=== PATIENT | male | born 1960 | race Caucasian/White ===

== ENCOUNTER 2018-08-16 08:58 | Inpatient (IN) ==
[2018-08-10 16:05] LABS: Appearance,Urine CLEAR; Bilirubin,Urine NEG (NEG); Color,Urine YELLOW; Glucose,Urine (UA) NEGATIVE (NEG); Leukocyte Esterase,Urine NEG /uL (NEG); Protein,Urine NEG (NEG); Specific Gravity,Urine 1.014 (1.000-1.035); Urine Blood NEG mg/dL (<0.03); Urobilinogen,Urine NEG (NEG)
[2018-08-10 18:28] LABS: Basophils # (Auto) 0 K/mcL (0.0-0.3); Basophils % (Auto) 0.4 % (0.0-2.0); Eosinophils # (Auto) 0.1 K/mcL (0.0-0.7); Eosinophils % (Auto) 1.3 % (0.0-7.0); Granulocytes % (Auto) 65.2 % (38.0-78.0); Lymphocytes # (Auto) 2.4 K/mcL (1.5-4.8); Lymphocytes % (Auto) 24.1 % (15.5-49.0); Mean Cell Volume 82.4 fL (80.0-100.0); Mean Corpuscular HGB Conc 33.4 g/dL (31.0-36.0); Mean Corpuscular Hemoglobin 27.5 pg (26.0-34.0); Monocytes # (Auto) 0.9 K/mcL (0.1-0.9); Platelet Count 349 K/mcL (140-440); RBC 5.57 M/mcL (4.50-5.90); Red Cell Distribution Width 13.6 % (11.5-14.5)
[2018-08-10 18:49] LABS: Blood Urea Nitrogen 15 mg/dl (6-20)
[~2018-08-16 08:58] MED LIST: 0.9 % SODIUM CHLORIDE 9 ML, KETOROLAC 30 MG, ROPIVACAINE HCL/PF 49.5 ML, EPINEPHrine 0.... IJ SCH; ACETAMINOPHEN 500 MG TABLET PO SCH; CELECOXIB 200 MG CAPSULE PO SCH; PREGABALIN 75 MG CAPSULE PO SCH; ceFAZolin 1 GM VIAL IV SCH
[2018-08-16] MEDS ORDERED: ONDANSETRON 4 MG/2 ML VIAL IV ONE (12:20)
[2018-08-16] MEDS ORDERED: PROPOFOL 200 MG/20 ML VIAL IV ONE (12:20)
[2018-08-16] MEDS ORDERED: LIDOCAINE HCL/PF 100 MG/5 ML SYRINGE IV ONE (12:20)
[2018-08-16] MEDS ORDERED: DEXAMETHASONE 10 MG/ML VIAL IV ONE (12:20)
[2018-08-16] MEDS ORDERED: MIDAZOLAM 5 MG/5 ML VIAL IV ONE (12:20)
[2018-08-16] MEDS ORDERED: TRANEXAMIC ACID 1,000 MG/10 ML VIAL IV ONE (12:20)
[2018-08-16] MEDS ORDERED: ROPIVACAINE HCL/PF 30 ML VIAL IJ ONE (12:20)
[2018-08-16] MEDS ORDERED: GENTAMICIN SULFATE 800 MG/20 ML VIAL IR ONE (12:44)
[2018-08-16] MEDS ORDERED: ONDANSETRON 4 MG/2 ML VIAL IV PRN ×2 (13:50→13:59)
[2018-08-16] MEDS ORDERED: fentaNYL 100 MCG/2 ML VIAL IV PRN (13:50)
[2018-08-16] MEDS ORDERED: METHOCARBAMOL 1,000 MG/10 ML VIAL IV PRN (13:50)
[2018-08-16] MEDS ORDERED: MEPERIDINE 25 MG/ML SYRINGE IV PRN (13:50)
[2018-08-16] MEDS ORDERED: IPRATROPIUM/ALBUTEROL 3 ML AMPUL.NEB NEB PRN (13:50)
[2018-08-16] MEDS ORDERED: BISACODYL 10 MG SUPP.RECT PR PRN (13:59)
[2018-08-16] MEDS ORDERED: BENZOCAINE/MENTHOL 1 LOZENGE PO PRN (13:59)
[2018-08-16] MEDS ORDERED: ACETAMINOPHEN 325 MG TABLET PO PRN (13:59)
[2018-08-16] MEDS ORDERED: POLYETHYLENE GLYCOL 3350 17 GM PACKET PO PRN (13:59)
[2018-08-16] MEDS ORDERED: FLEETS ADULT ENEMA PR PRN (13:59)
[2018-08-16] MEDS ORDERED: MAGNESIUM HYDROXIDE 30 ML ORAL.SUSP PO PRN (13:59)
[2018-08-16] MEDS ORDERED: TRANEXAMIC ACID 1,000 MG/10 ML VIAL IV SCH (13:59)
--- NOTE | 2018-08-16 13:59 | Brief Operative Note ---
Date of procedure: 08/16/18 Pre-op diagnosis: Left knee djd severe Post-op diagnosis: same Procedure: left robotic tka Grafts/Implants: Yes Anesthesia: GETA Complications: none Surgeon: Sumanth Magallanes [employer] Manager: Ganga Cabrera Estimated blood loss (cc): 50 Tourniquet Time (Minutes): 55 Specimens Removed/Pathology: none sent Condition: stable Disposition: PACU
[2018-08-16] MEDS ORDERED: LACTATED RINGERS 1,000 ML IV SCH (14:00)
--- NOTE | 2018-08-16 14:50 | Operative Note ---
DATE OF OPERATION: 08/16/2018 PREOPERATIVE DIAGNOSIS: Left knee degenerative arthritis. POSTOPERATIVE DIAGNOSIS: Left knee degenerative arthritis. PROCEDURE: Left total knee arthroplasty. SURGEON: Sumanth Magallanes MD DATA ADMINISTRATOR: Ganga Cabrera PA-C ANESTHESIA: General LMA anesthesia. COMPLICATIONS: None. TOTAL TOURNIQUET TIME: Approximately 55 minutes. ESTIMATED BLOOD LOSS: About 50 mL IMPLANTS: Dmitri components. These were cemented femoral and tibial baseplate with a 9 mm poly insert with a 35 mm oval patella. DESCRIPTION OF PROCEDURE: Patient was brought to the operating room and put to sleep with general LMA anesthesia. Once asleep, the patient had the left leg sterilely prepped and draped in the usual sterile fashion. A timeout was performed and we confirmed the operative site by initials, consent form and x-rays. Ioban was placed over the skin and the initials and a midline incision was made. A mid vastus approach through the capsule was made and pins were placed above and below the knee and intra-articular pins. We registered the center of hip rotation and 30 points on the femur and the tibia, registered the medial and lateral malleolus and the intra-articular pins. We then balanced the knee at 90 and 15 degrees. Large spurs had been removed. We then brought in the robot, registered the robot and cut the tibial cut first. We reregistered the femur and robot and the femoral cuts were made. These bony fragments were removed. The alignment was perfectly aligned with a preoperatively planned procedure. We then preserved the posterior cruciate ligament, removed posterior osteophytes and balanced the knee. It was a little tight medially. At this point, we did release the deeper heads of the medial collateral ligament. This seemed to balance nicely. It had almost 0 degrees extension. He started about 5 degrees flexion contracture and had about 3 degrees of flexion. We were able to get to full extension. We irrigated thoroughly and then fit the final implants. These were cemented into place after preparing the bone with pulse lavage and CarboJet to dry the bone. This gave excellent bone penetration into the bone. We irrigated thoroughly. We then put the knee in extension, resurfaced the patella. It started at 25 mm. It was cut to 16 mm and a 35 mm oval patella was placed which matched the anatomy of the patella the best. A small chamfer cut was made laterally with any overhanging bone. We irrigated thoroughly and watched the patella tracked perfectly. At this point, we then let the knee at 45 degrees until all cement was dried. We deflated the tourniquet at approximately 55 minutes. We then inspected the joint once more for any debris and closed the capsule with #1 Stratafix x2 sutures. We closed the skin with 2-0 Vicryl and adhesive closure. Sterile bandage was applied. RBH:stoney Job ID: [id number] Doc ID: [id number] Sumanth Magallanes MD
--- NOTE | 2018-08-16 15:18 | XRay Report ---
CLINICAL INFORMATION: Post-Op Total Knee COMPARISON: None. FINDINGS: Total knee prostheses is anatomically aligned. No osseous abnormality. Periarticular gas and soft tissue swelling seen as expected IMPRESSION: Negative Interpreted and Authenticated by: Juan Miguel Portillo 08/16/18
[2018-08-16] MEDS: 0.9 % SODIUM CHLORIDE 10 ML SYRINGE IV SCH ×2 (16:09→21:24)
[2018-08-16] MEDS: 0.45 % SODIUM CHLORIDE 1,000 ML IV SCH (17:35)
[2018-08-16] MEDS: FERROUS SULFATE 325 MG TABLET PO SCH (17:36)
[2018-08-16] MEDS: KETOROLAC 15 MG/ML VIAL IV SCH ×2 (17:36→23:19)
[2018-08-16] MEDS: ceFAZolin 1 GM VIAL IV SCH (19:12)
[2018-08-16] MEDS: HYDROcodone/APAP 10/325MG TABLET PO PRN (19:30)
[2018-08-16] MEDS ORDERED: SIMVASTATIN 10 MG TABLET PO SCH (21:00)
[2018-08-16] MEDS ORDERED: VITAMIN D3 1,000 UNIT TABLET PO SCH (21:00)
[2018-08-16] MEDS ORDERED: TEMAZEPAM 15 MG CAPSULE PO PRN (21:00)
[2018-08-16] MEDS ORDERED: SENNOSIDES 1 TABLET PO SCH (21:00)
[2018-08-16] MEDS ORDERED: LOSARTAN 25 MG TABLET PO SCH (21:00)
[2018-08-16] MEDS ORDERED: ASCORBIC ACID 500 MG TABLET PO SCH (21:00)
[2018-08-16] MEDS: ASPIRIN 325 MG ENTERIC COATED TABLET PO SCH (21:21)
[2018-08-16] MEDS: DOCUSATE SODIUM 100 MG CAPSULE PO SCH (21:22)
[2018-08-16] MEDS: HYDROmorphone 2 MG/ML VIAL IV PRN (23:18)
[2018-08-17] MEDS: HYDROcodone/APAP 10/325MG TABLET PO PRN ×2 (00:19→10:07)
[2018-08-17] MEDS: HYDROmorphone 2 MG/ML VIAL IV PRN (02:39)
[2018-08-17] MEDS: 0.45 % SODIUM CHLORIDE 1,000 ML IV SCH (02:40)
[2018-08-17] MEDS: ceFAZolin 1 GM VIAL IV SCH (03:20)
[2018-08-17] MEDS: KETOROLAC 15 MG/ML VIAL IV SCH (05:14)
[2018-08-17] MEDS: 0.9 % SODIUM CHLORIDE 10 ML SYRINGE IV SCH (05:14)
--- NOTE | 2018-08-17 07:04 | Orthopedic Progress Note ---
Subjective Patient information: Note initiated : 08/17/18 at 7:03 am Service Date, if different from initiated Date: [] Patient: Carlos Hicks 58 y/o M admitted on 08/16/18 for Left Robotic Total Knee Arthroplasty. Chief Complaint: [Pt is stable this morning on post operative day 1 without any significant concerns or complaints. Patients vital signs have remained stable. Patients dressing is dry and is grossly intact from a neurovascular and motor standpoint. Patients 10 point ROS is otherwise negative. ] Objective Vital signs: Vital Signs Temp Pulse Resp BP Pulse Ox 08/17/18 03:42 98.5 F 91 H 16 98/60 93 08/17/18 03:41 93 08/17/18 00:00 98.6 F 88 16 110/62 95 08/16/18 19:49 98.1 F 103 H 20 128/82 93 08/16/18 17:59 95 08/16/18 17:05 124/74 95 08/16/18 16:43 121/81 97 08/16/18 16:28 123/77 96 08/16/18 16:13 133/82 98 08/16/18 15:58 126/78 94 08/16/18 15:43 128/78 97 08/16/18 15:19 96.9 F L 63 14 144/79 98 08/16/18 15:05 96.9 F L 68 14 158/83 98 08/16/18 14:53 97.1 F 77 13 150/87 99 08/16/18 14:38 97 F 80 14 158/86 98 08/16/18 14:33 97.1 F 80 18 141/85 97 08/16/18 14:28 97 F 83 18 113/81 93 08/16/18 14:23 97 F 79 17 96/52 98 08/16/18 13:59 77 08/16/18 13:50 99 08/16/18 09:22 97.9 F 77 16 135/78 95 08/16/18 08:58 97.9 F 77 16 135/78 95 Intake and Output 08/16/18 08/17/18 08/17/18 21:59 05:59 13:59 Intake Total 2240 / 2240 2100 / 2100 Output Total 1700 / 1700 225 / 225 Balance 540 / 540 1875 / 1875 Intake: IV 1000 / 1000 Sodium Chloride 0.45% 1,000 ml 1000 / 1000 @ 100 mls/hr IV .Q10H SANDRA Rx#: [id number] Oral 840 / 840 1100 / 1100 IV - Manual Only 1400 / 1400 Output: Urine Catheter Amount 600 / 600 Void Amount 975 / 975 225 / 225 Estimated Blood Loss 125 / 125 Other: Urine Appearance Clear Clear Urine Color Bright Yellow Dark Yellow Urine Odor Normal Normal Weight 322 lb Intake & Output: Intake & Output 08/16/18 08/17/18 08/17/18 21:59 05:59 13:59 Intake Total 2240 / 2240 2100 / 2100 Output Total 1700 / 1700 225 / 225 Balance 540 / 540 1875 / 1875 Weight 322 lb Intake: IV 1000 / 1000 Sodium Chloride 0.45% 1,000 ml 1000 / 1000 @ 100 mls/hr IV .Q10H SANDRA Rx#: [id number] Oral 840 / 840 1100 / 1100 IV - Manual Only 1400 / 1400 Output: Urine Catheter Amount 600 / 600 Void Amount 975 / 975 225 / 225 Estimated Blood Loss 125 / 125 Other: Urine Appearance Clear Clear Urine Color Bright Yellow Dark Yellow Urine Odor Normal Normal Incision: Yes healing Incision clean and dry: Yes Dressing: Yes clean Weight bearing status: full Neurological exam IM: Yes motor sensory intact, Yes neurovascular intact Extremities exam IM: Yes Foot pink and warm, Yes neurovascular intact - Labs CBC & BMP: 08/17/18 04:05 08/10/18 13:45 Labs: Orthopedic Labs 08/10/18 13:45 PT 13.2 INR 1.0 APTT 35 08/17/18 08/10/18 04:05 13:45 Hgb 15.3 Hct 37.0 L 45.9 Assessment and Plan (1) Hx of total knee arthroplasty The patient has been educated regarding dressing care, Physical Therapy recommendations, home exercises, restrictions, and follow up appointments. The patient has had all necessary DME prescribed. The patient has remained relatively stable during their hospital course. Leave Dermabond patch intact until followup Status: Acute
--- NOTE | 2018-08-17 07:06 | Discharge Summary ---
Ortho Discharge - TKA - Patient Instructions Diet: Regular Diet Activity: activity as tolerated, weight bearing as tolerated Total Knee Protocol: For Total Knee: Start ROM [place] with stationary bike or rocking chair. Work on gaining full extension of knee. Posterior dislocation precautions provided. Hip abductor strengthening and gait training instructions provided. Apply Cryocuff as instructed. Dressing Care: May shower in 2 days - Problem Maintenance (1) Hx of total knee arthroplasty Status: Acute - Follow Up Plan Follow Up Appointments: Ganga Cabrera PA-C [Physician Agriscience Instructor] - Disposition: Home, Self-Care Prognosis: Good Rehab Potential: Good I certify that the patient requires SNF services: No Overall status at discharge: patient is progressing back to baseline - Orders For Discharge Prescriptions: Aspirin [Ecotrin] 325 mg PO BID #60 tab.ec Docusate Sodium [Colace] 100 mg PO BID #60 cap HYDROcodone/APAP 10/325MG [[place] 10-325Mg] 1 - 2 tab PO Q4HP PRN #75 tab PRN Reason: Pain Level 3-6
[2018-08-17] MEDS: DOCUSATE SODIUM 100 MG CAPSULE PO SCH (08:38)
[2018-08-17] MEDS: FERROUS SULFATE 325 MG TABLET PO SCH (08:38)
[2018-08-17] MEDS: ASPIRIN 325 MG ENTERIC COATED TABLET PO SCH (08:38)
[2018-08-17] MEDS ORDERED: SAW PALMETTO 160 MG PO SCH (09:00)
[2018-08-17] MEDS ORDERED: MODAFINIL 200 MG TABLET PO SCH (09:00)
== END 2018-08-17 11:45 | disposition home or self-care (01) | DRG 470 ==
LOC: MEDSUR 08:58
PROVIDERS: ADMIT Orthopaedic Surgery; ATTEND Orthopaedic Surgery
CPT/HCPCS: 62322; 97161; C1713; C1776; J0690; J1100; J1170; J1580; J1885; J2001; J2250; J2405; J2795; J3010; J7120

== ENCOUNTER 2019-04-11 12:17 | Inpatient (IN) ==
[2019-04-05 15:50] LABS: Basophils # (Auto) 0 K/mcL (0.0-0.3); Basophils % (Auto) 0.4 % (0.0-2.0); Eosinophils # (Auto) 0.2 K/mcL (0.0-0.7); Eosinophils % (Auto) 2.2 % (0.0-7.0); Granulocytes % (Auto) 64.5 % (38.0-78.0); Hematocrit 47.5 % (41.0-55.0); Hemoglobin 15.3 g/dL (13.5-16.5); Lymphocytes # (Auto) 2.6 K/mcL (1.5-4.8); Lymphocytes % (Auto) 25.5 % (15.5-49.0); Mean Cell Volume 83.4 fL (80.0-100.0); Mean Corpuscular HGB Conc 32.3 g/dL (31.0-36.0); Mean Platelet Volume 7.5 fL (7.4-10.4); Monocytes # (Auto) 0.8 K/mcL (0.1-0.9); Monocytes % (Auto) 7.4 % (1.0-12.0); Platelet Count 341 K/mcL (140-440); RBC 5.69 M/mcL (4.50-5.90); Red Cell Distribution Width 13.3 % (11.5-14.5); WBC 10.2 K/mcL (4.5-11.0)
[2019-04-05 15:56] LABS: INR 0.9 (0.9-1.1); Prothrombin Time 12.4 sec (11.9-14.5)
[2019-04-05 15:57] LABS: Blood Urea Nitrogen 17 mg/dl (6-20); Calcium 10.3 mg/dl (8.6-10.4); Carbon Dioxide 24 mmol/L (22-30); Chloride 105 mmol/L (96-108); Glomerular Filtration Rate 94; Glucose 100 mg/dL (70-105)
[2019-04-05 16:38] LABS: Appearance,Urine CLEAR; Bacteria,Urine 0 /hpf (0); Bilirubin,Urine NEG (NEG); Color,Urine YELLOW; Culture Indicated,Urine NO; Glucose,Urine (UA) NEGATIVE (NEG); Ketones,Urine NEG (NEG); Leukocyte Esterase,Urine NEG /uL (NEG); Mucus,Urine FEW /hpf (0); Nitrate,Urine NEG (NEG); Protein,Urine NEG (NEG); Specific Gravity,Urine 1.019 (1.000-1.035); Urine Blood 0.03 mg/dL (<0.03); Urine RBC 3 /hpf (0-1); Urine Squamous Epithelial Cell 0 /hpf (0-4); Urine WBC 1 /hpf (0-4); Urobilinogen,Urine NEG (NEG)
[~2019-04-11 12:17] MED LIST changes: +IPRATROPIUM/ALBUTEROL 3 ML AMPUL.NEB NEB PRN; +SCOPOLAMINE 1 PATCH PATCH TOPICAL PRN; -ceFAZolin 1 GM VIAL IV SCH; +ceFAZolin 3 GM in DEXTROSE 5% IN WATER 50 ML IV SCH
[2019-04-11] MEDS ORDERED: DEXAMETHASONE 10 MG/ML VIAL ONE (17:10)
[2019-04-11] MEDS ORDERED: PROPOFOL 200 MG/20 ML VIAL IV ONE (17:10)
[2019-04-11] MEDS ORDERED: LIDOCAINE HCL/PF 100 MG/5 ML SYRINGE IV ONE (17:10)
[2019-04-11] MEDS ORDERED: MIDAZOLAM 5 MG/5 ML VIAL ONE (17:10)
[2019-04-11] MEDS ORDERED: fentaNYL 100 MCG/2 ML VIAL IV ONE (17:10)
[2019-04-11] MEDS ORDERED: ONDANSETRON 4 MG/2 ML VIAL ONE (17:10)
[2019-04-11] MEDS ORDERED: GENTAMICIN SULFATE 800 MG/20 ML VIAL IR ONE (17:44)
[2019-04-11] MEDS ORDERED: HYDROmorphone 2 MG/ML VIAL IV PRN ×2 (19:10→19:45)
[2019-04-11] MEDS ORDERED: ACETAMINOPHEN 1,000 MG/100 ML BOTTLE IV ONE (19:10)
[2019-04-11] MEDS ORDERED: FLUMAZENIL 0.1 MG/ML ML IV PRN (19:10)
[2019-04-11] MEDS ORDERED: fentaNYL 100 MCG/2 ML VIAL IV PRN (19:10)
[2019-04-11] MEDS ORDERED: LACTATED RINGERS 250 ML IV PRN (19:10)
[2019-04-11] MEDS ORDERED: NALOXONE HCL 0.4 MG/ML VIAL IV PRN (19:10)
[2019-04-11] MEDS ORDERED: PROMETHAZINE 25 MG/ML VIAL IV PRN (19:10)
[2019-04-11] MEDS ORDERED: BENZOCAINE/MENTHOL 1 LOZENGE PO PRN ×2 (19:10→19:45)
[2019-04-11] MEDS ORDERED: IPRATROPIUM/ALBUTEROL 3 ML AMPUL.NEB NEB PRN (19:10)
[2019-04-11] MEDS ORDERED: MEPERIDINE 25 MG/ML SYRINGE IV PRN (19:10)
[2019-04-11] MEDS ORDERED: ONDANSETRON 4 MG/2 ML VIAL IV PRN ×2 (19:10→19:45)
[2019-04-11] MEDS ORDERED: diphenhydrAMINE 50 MG/ML VIAL IV PRN (19:10)
[2019-04-11] MEDS ORDERED: LACTATED RINGERS 1,000 ML IV SCH (19:15)
[2019-04-11] MEDS ORDERED: FLEETS ADULT ENEMA PR PRN (19:45)
[2019-04-11] MEDS ORDERED: BISACODYL 10 MG SUPP.RECT PR PRN (19:45)
[2019-04-11] MEDS ORDERED: TRANEXAMIC ACID 1,000 MG/10 ML VIAL IV ONE ×2 (19:45→20:25)
[2019-04-11] MEDS ORDERED: POLYETHYLENE GLYCOL 3350 17 GM PACKET PO PRN (19:45)
[2019-04-11] MEDS ORDERED: MAGNESIUM HYDROXIDE 30 ML ORAL.SUSP PO PRN (19:45)
[2019-04-11] MEDS ORDERED: TEMAZEPAM 15 MG CAPSULE PO PRN (19:45)
[2019-04-11] MEDS ORDERED: ACETAMINOPHEN 325 MG TABLET PO PRN (19:45)
--- NOTE | 2019-04-11 19:45 | Brief Operative Note ---
Date of procedure: 04/11/19 Pre-op diagnosis: Right failed total knee Post-op diagnosis: same Procedure: right tka revision of all components Grafts/Implants: Yes Anesthesia: MIGUEL Surgeon: Sumanth Magallanes Lathing Supervisor: Duane Desai Estimated blood loss (cc): 50 Tourniquet Time (Minutes): 100 Specimens Removed/Pathology: none sent Condition: stable Disposition: PACU
[2019-04-11] MEDS ORDERED: PROAIR INH PRN (19:47)
[2019-04-11] MEDS ORDERED: SIMVASTATIN 20 MG TABLET PO SCH (21:00)
[2019-04-11] MEDS ORDERED: SENNOSIDES 1 TABLET PO SCH (21:00)
[2019-04-11] MEDS: 0.45 % SODIUM CHLORIDE 1,000 ML IV SCH (21:51)
[2019-04-11] MEDS: ceFAZolin 1 GM VIAL IV SCH (21:51)
[2019-04-11] MEDS: ASPIRIN 325 MG ENTERIC COATED TABLET PO SCH (21:53)
[2019-04-11] MEDS: DOCUSATE SODIUM 100 MG CAPSULE PO SCH (21:53)
[2019-04-11] MEDS: oxyCODONE/APAP 5/325MG TABLET PO PRN (21:53)
[2019-04-11] MEDS: 0.9 % SODIUM CHLORIDE 10 ML SYRINGE IV SCH (23:15)
[2019-04-12] MEDS: KETOROLAC 15 MG/ML VIAL IV SCH ×2 (00:07→05:23)
[2019-04-12] MEDS: oxyCODONE/APAP 5/325MG TABLET PO PRN ×2 (01:46→06:01)
--- NOTE | 2019-04-12 04:33 | XRay Report ---
CLINICAL INFORMATION: Post-Op Total Knee COMPARISON: None. FINDINGS: Total knee prostheses is anatomically aligned. No osseous abnormality. Periarticular soft tissue swelling noted IMPRESSION: Negative Interpreted and Authenticated by: Juan Miguel Portillo 04/12/19
[2019-04-12] MEDS: 0.9 % SODIUM CHLORIDE 10 ML SYRINGE IV SCH (05:24)
[2019-04-12] MEDS: ceFAZolin 1 GM VIAL IV SCH (05:24)
--- NOTE | 2019-04-12 06:32 | Orthopedic Progress Note ---
Subjective Patient information: Note initiated : 04/12/19 at 6:30 am Service Date, if different from initiated Date: [] Patient: Carlos Hicks 59 y/o M admitted on 04/11/19 for Right Revision Total Knee Arthroplasty. Chief Complaint: Right knee pain Principal diagnosis: s/p Right Revision Total Knee Arthroplasty Interval history: Pt is a 59 yo male POD #1 for Right Revision Total Knee Arthroplasty with Dr. Magallanes. Overall doing well this AM. His pain is managed. Denies N/V, CP, SOB, ca lf tenderness. Admits to slight tingling in the right great toe. Has been ambulating with PT using the walker. Has been able to void this AM. Pertinent ROS: Negative except per HPI. Objective Vital signs: Vital Signs Temp Pulse Resp BP BP Pulse Ox 04/12/19 03:14 98.2 F 108 H 16 116/73 95 04/12/19 00:00 95 04/11/19 23:58 97.9 F 96 H 14 116/71 95 04/11/19 22:58 100 H 129/78 94 04/11/19 22:30 98 H 129/71 96 04/11/19 21:58 88 137/71 97 04/11/19 21:44 82 135/56 96 04/11/19 21:28 83 127/82 95 04/11/19 21:14 77 128/72 96 04/11/19 21:00 95 04/11/19 20:59 97.4 F 74 16 124/76 94 04/11/19 20:58 72 124/76 94 04/11/19 20:42 74 16 134/77 96 04/11/19 20:32 74 14 131/58 95 04/11/19 20:22 77 14 135/73 95 04/11/19 20:17 81 14 120/63 94 04/11/19 20:12 85 19 130/60 96 04/11/19 20:07 97.4 F 80 12 131/68 100 04/11/19 19:45 95 04/11/19 13:00 98.7 F 84 18 146/84 96 Intake and Output 04/11/19 04/12/19 04/12/19 21:59 05:59 13:59 Intake Total 2780 640 800 Output Total 800 1025 250 Balance 1979 -385 550 Intake: Oral 360 640 800 IV - Manual Only 2420 Output: Urine Catheter Amount 700 1025 Void Amount 250 Estimated Blood Loss 100 Other: Meal Dinner Percent of Meal Consumed 100% Feeding Ability Independent Nourishment/Supplement name tuna salad, chicken salad, peaches, cheese stick, OJ, Coke, Gram crackers Urine Appearance Clear Clear Clear Straight Clear Urine Color Bright Yellow Bright Yellow Bright Yellow Straight Bright Yellow Urine Odor Normal Normal Normal # Bowel Movements 0 Weight 328 lb 8 oz Intake & Output: Intake & Output 04/11/19 04/12/19 04/12/19 21:59 05:59 13:59 Intake Total 2780 640 800 Output Total 800 1025 250 Balance 1980 -385 550 Weight 328 lb 8 oz Intake: Oral 360 640 800 IV - Manual Only 2420 Output: Urine Catheter Amount 700 1025 Void Amount 250 Estimated Blood Loss 100 Other: Meal Dinner Percent of Meal Consumed 100% Feeding Ability Independent Nourishment/Supplement name tuna salad, chicken salad, peaches, cheese stick, OJ, Coke, Gram crackers Urine Appearance Clear Clear Clear Straight Clear Urine Color Bright Yellow Bright Yellow Bright Yellow Straight Bright Yellow Urine Odor Normal Normal Normal # Bowel Movements 0 Incision: Yes clean and dry Dressing: Yes clean, Yes dry, Yes intact Weight bearing status: as tolerated Neurological exam IM: Yes alert, Yes oriented X3 Extremities exam IM: No calf tenderness, Yes normal capillary refill, Yes normal inspection, No Sofia's sign, Yes neurovascular intact - Labs CBC & BMP: 04/05/19 13:40 04/05/19 13:40 Labs: Orthopedic Labs 04/05/19 13:40 PT 12.4 INR 0.9 APTT 31 04/12/19 04/05/19 04:30 13:40 Hgb 15.3 Hct Pending 47.5 Assessment and Plan - Narrative A/P Narrative: Pt is 59 yo male POD #1 following Right revision TKA. -Plan for DC home today. -WBAT -ASA 81 mg for 30 days. -Pain med rx at dc. -PT as prescribed. -F/u with orthopaedics in 2 weeks for wound check.
--- NOTE | 2019-04-12 06:38 | Discharge Summary ---
Providers - Providers Patient information: Note initiated : 04/12/19 at 6:36 am Service Date, if different from initiated Date: [] Patient: Carlos Hicks 59 y/o M admitted on 04/11/19 for Right Revision Total Knee Arthroplasty . Chief Complaint: Right knee pain. Date of admission: 04/11/19 Discharge date: 04/12/19 Hospitalization Hospital course: Pt is 59 yo male POD #1 following Right tka revision with Dr. Magallanes. Overall hospital course has been unremarkable. Vitals remain stable. Pt had difficulty urinating last evening however has been able to void this AM. Discharge diagnosis: s/p right TKA revision Exam - Exam Incision healing: Yes Incision draining: No Incision red: No Incision swollen: No Incision inflamed: No Clean and dry: Yes Weight bearing status: as tolerated Ortho Discharge - TKA - Patient Instructions Diet: Regular Diet Activity: activity as tolerated Total Knee Protocol: For Total Knee: Start ROM [place] with stationary bike or rocking chair. Work on gaining full extension of knee. Apply Cryocuff as instructed. Dressing Care: Other (may shower with Dermabond patch in place.) - Follow Up Plan Follow Up Appointments: Ganga Cabrera PA-C [Physician Lathing Supervisor] - 04/26/19 2:40 pm Disposition: Home, Self-Care Prognosis: Good Rehab Potential: Good I certify that the patient requires SNF services: No Overall status at discharge: patient is progressing back to baseline Pending Studies Resuscitation Status Full Code Diet Regular Diet Start ThuApr 11 Lunch Aspirin (Ecotrin) 325 mg PO BID [facility] Last Admin: 04/11/19 21:53 Dose: 325 mg Documented by: CALEB Docusate Sodium (Colace) 100 mg PO BID [facility] Last Admin: 04/11/19 21:53 Dose: 100 mg Documented by: CALEB Sodium Chloride (Sodium Chloride 0.45%) 1,000 mls @ 100 mls/hr IV .Q10H [facility] Last Admin: 04/11/19 21:51 Dose: 100 mls/hr Documented by: CALEB Ketorolac Tromethamine (Toradol) 15 mg IV Q6 [facility] Stop: 04/13/19 18:01 Last Admin: 04/12/19 05:23 Dose: 15 mg Documented by: Admin: 04/12/19 00:07 Dose: 15 mg Documented by: CALEB Oxycodone/Acetaminophen (Percocet 5-325 Mg) 0 tab PO Q4HP PRN PRN Reason: PAIN LEVEL 3-6 Last Admin: 04/12/19 06:01 Dose: 2 tab Documented by: Admin: 04/12/19 01:46 Dose: 2 tab Documented by: Admin: 04/11/19 21:53 Dose: 2 tab Documented by: CALEB Senna (Senokot) 2 tab PO HS [facility] Last Admin: 04/11/19 21:53 Dose: 2 tab Documented by: CALEB Simvastatin (Zocor) 20 mg PO HS [facility] Last Admin: 04/11/19 21:53 Dose: 20 mg Documented by: CALEB Sodium Chloride (Saline Flush) 10 ml IV Q8 [facility] Last Admin: 04/12/19 05:24 Dose: Not Given Documented by: Admin: 04/11/19 23:15 Dose: Not Given Documented by: CALEB Temazepam (Restoril) 15 mg PO HSP PRN PRN Reason: Insomnia Last Admin: 04/11/19 21:53 Dose: 15 mg Documented by: CALEB Shift Summary 04/12/19 03:35 Shift Summary by Philomena Suárez a/o x4, up with fww/sba, ambulated to and from nurses station with no d ifficulty, dressing of cathryn wrap to rt leg c/d/i, pain has been below a 4/10 to 0/10 this shift, medicated with percocet 2 tabs x2, given restoril for sleep, he maybe slept one hour, has declined use of cryo cuff and cpm, has been moving his need and flexing his ankle in bed, stated he a just a tiny bit of numbness to the rt first and 2 nd toe, has his own c -pap at bedside, on ra, vss, will receive his 2 nd dose of ancef this am, has a spine stimulator which he controls with a remote control for chronic back pain, Initialized on 04/12/19 03:35 - END OF NOTE
--- NOTE | 2019-04-12 07:16 | Operative Note ---
DATE OF OPERATION: 04/11/2019 PREOPERATIVE DIAGNOSIS: Right knee degenerative arthritis with a failed total knee arthroplasty with continued pain. POSTOPERATIVE DIAGNOSIS: Right knee degenerative arthritis with a failed total knee arthroplasty with continued pain. PROCEDURE: Complete revision of the right total knee arthroplasty. SURGEON: Sumanth Magallanes MD TREE GIRDLER: Duane Desai PA-C. This provider's expertise and technical skill were required throughout the case. The PA assisted with preoperative coordination, intraoperative retraction, wound closure, dressing and splint application, as well as postoperative documentation and care coordination. ESTIMATED BLOOD LOSS: About 50 mL TOURNIQUET TIME: 100 minutes. COMPLICATIONS: None. IMPLANTS: [place] revision femur and tibia with size 6 femur and size 5 tibial baseplate with a 13 mm polyethylene. DESCRIPTION OF PROCEDURE: The patient was brought to the operating room and put to sleep with general LMA. Once asleep, the patient had the right knee sterilely prepped and draped in the usual sterile fashion. Once done, we then confirmed the right knee as the operative site, made an incision through his prior scar exposing the joint with a mid vastus approach. The patella was subluxed laterally and this revealed the total knee with a post. We then removed the femoral component and removed the polyethylene. The femur came off with very minimal bone loss and the tibial baseplate was removed with minimal bone loss as well, using osteotomes to help free this up from the bone. This was tapped off and removed all the components. We thoroughly irrigated. We then placed an intramedullary guide rom in the tibia, reaming up to the size of 16 to a depth of 150 mm. Using a 2 mm offset to give better lateral coverage and better tracking for the patella, we positioned plates in external rotation and lateralizing the plate. This was tapped into place. On the femoral side we sized the femur to a size 6, made posterior cuts to remove any spurs. There were large posterior spurs that had been left that were removed using curved osteotomes. Once these were removed, we irrigated thoroughly and then trialed the components with a size 17 stem with 2 mm of lateralization, wheeled into the stem to help with the tracking of the patella. We then trialed a size 9, size 11 and then a 13 seemed to be the most appropriate for tightness. It tracked very well. The patella tracked perfectly. We irrigated thoroughly and then received the lab results from the high powered field. The fresh frozen section showed minimal white cells but with some chronic inflammation. We irrigated thoroughly and then cemented into place the size 5 tibial baseplate with a 16 mm stem, 150 mm long with lateralization 2 mm of the 4 o'clock position. Once done, we then prepared the femur. This was size 6 femur with a size 17 stem with lateralization of 2 mm, which was dialed in at the 9 o'clock position. The components were cemented, but the stems were not. These were ingrowth stems. We irrigated thoroughly and then inserted the polyethylene with a locking pin to size 13. We irrigated thoroughly and watched the patella track. It tracked perfectly. We irrigated thoroughly and then used Stratafix to close the wound. Some Ethibond had been used prior that was removed, the knots, and we then placed #1 Stratafix x3 sutures to close the wound. We closed the skin with 2-0 Vicryl and adhesive closure. The patient tolerated this well. There were no complications. LUIS:stoney Job ID: [id number] Doc ID: [id number] Sumanth Magallanes MD
[2019-04-12] MEDS ORDERED: FERROUS SULFATE 325 MG TABLET PO SCH (08:00)
[2019-04-12] MEDS ORDERED: LOSARTAN 25 MG TABLET PO SCH (09:00)
[2019-04-12] MEDS ORDERED: MODAFINIL 200 MG TABLET PO SCH (09:00)
[2019-04-12] MEDS ORDERED: COENZYME Q10 10 MG PO SCH (09:00)
[2019-04-12] MEDS ORDERED: PRAVASTATIN SODIUM 40 MG PO SCH (09:00)
[2019-04-12] MEDS: 0.45 % SODIUM CHLORIDE 1,000 ML IV SCH (09:06)
[2019-04-12] MEDS: DOCUSATE SODIUM 100 MG CAPSULE PO SCH (09:27)
[2019-04-12] MEDS: ASPIRIN 325 MG ENTERIC COATED TABLET PO SCH (09:28)
--- NOTE | 2019-04-13 13:11 | Surgical Pathology Report ---
HISTOLOGY SPECIMEN MICROSCOPIC DIAGNOSIS SYNOVIUM, RIGHT KNEE SUPERIOR POUCH, BIOPSY: -- SYNOVIUM WITH MILD CHRONIC INFLAMMATION AND CAUTERY ARTIFACT. -- NO SIGNIFICANT ACUTE INFLAMMATION IDENTIFIED, LESS THAN ONE NEUTROPHIL/hpf. (EBD:nicol) INTRAOPERATIVE CONSULTATION FROZEN SECTION DIAGNOSIS ([facility] [place], [place]) FSA - SYNOVIUM, RIGHT KNEE SUPERIOR POUCH, BIOPSY: -- 0-1 NEUTROPHILS/hpf. (RLF:sln) PROCEDURAL IMPRESSION Broken internal right knee prosthesis. GROSS DESCRIPTION Received fresh for intraoperative consultation labeled right knee superior pouch, is a segment of red-sauceda to white-sauceda rubbery tissue that measures 2.8 x 2.3 x 0.5 cm. Frozen section is performed. Excel Analyst sections submitted in one cassette. (RLF:sln) Electronically Signed by: Tiffanie Escudero M.D.
== END 2019-04-12 13:25 | disposition home or self-care (01) | DRG 467 ==
LOC: MEDSUR 12:17
PROVIDERS: ADMIT Orthopaedic Surgery; ATTEND Orthopaedic Surgery

== ENCOUNTER 2021-03-20 06:24 | Observation (INO) ==
--- NOTE | 2021-03-18 12:30 | EKG ---
[facility] Test Date: 2021-03-18 Pat Name: Carlos Hicks Department: [facility] Room: Gender: Male Quality Lead: YRN : 1960 Requested By: Rosemarie Caballero Order Number: [id number] Reading MD: Yoel Carreon M.D. Measurements Intervals [place] Rate: 78 P: 60 CO: 172 QRS: 2 QRSD: 96 T: 41 QT: 376 QTc: 429 Interpretive Statements SINUS RHYTHM PROBABLE INFERIOR INFARCT, AGE INDETERMINATE NO PRIOR TRACING FOR COMPARISON ABNORMAL ECG Electronically Signed On 03-18-2021 12:30:34 PDT by Yoel Carreon M.D. /[id number]/[email or web address]/[id number]
[2021-03-18 13:15] LABS: Basophils # (Auto) 0.04 K/mcL (0.00-0.20); Basophils % (Auto) 0.8 % (0.0-2.0); Eosinophils # (Auto) 0.32 K/mcL (0.00-0.70); Eosinophils % (Auto) 6.1 % (0.0-7.0); Hematocrit 45.2 % (41.0-55.0); Hemoglobin 14.4 g/dL (13.5-16.5); Lymphocytes % (Auto) 20.9 % (15.0-49.0); Mean Cell Volume 84.5 fL (80.0-100.0); Mean Corpuscular HGB Conc 31.9 g/dL (31.0-36.0); Mean Platelet Volume 9.3 fL (7.4-10.4); Monocytes # (Auto) 0.57 K/mcL (0.10-0.90); Monocytes % (Auto) 10.8 % (1.0-12.0); Neutrophils % (Auto) 61.4 % (38.0-78.0); Platelet Count 266 K/mcL (140-440); RBC 5.35 M/mcL (4.50-5.90); Red Cell Distribution Width 12.8 % (11.5-14.5); WBC 5.3 K/mcL (4.5-11.0)
[2021-03-18 14:49] LABS: Partial Thromboplastin Time 32.1 sec (20.0-37.0); Prothrombin Time 13.1 sec (11.9-14.5)
[2021-03-18 14:59] LABS: ALT/SGPT 26 U/L (<40); AST/SGOT 23 U/L (<40); Albumin 4.2 gm/dL (3.2-5.2); Albumin/Globulin Ratio 1.7 (1.0-2.3); Alkaline Phosphatase 101 U/L (39-117); Bilirubin,Total 0.3 mg/dL (0.1-1.0); Blood Urea Nitrogen 17 mg/dL (6-20); Carbon Dioxide 24 mmol/L (22-30); Chloride 101 mmol/L (96-108); Globulin 2.5 gm/dL (2.2-3.7); Glomerular Filtration Rate 98; Glucose 83 mg/dL (70-105)
[~2021-03-20 06:24] MED LIST changes: -0.9 % SODIUM CHLORIDE 9 ML, KETOROLAC 30 MG, ROPIVACAINE HCL/PF 49.5 ML, EPINEPHrine 0.... IJ SCH; -ACETAMINOPHEN 500 MG TABLET PO SCH; -CELECOXIB 200 MG CAPSULE PO SCH; -IPRATROPIUM/ALBUTEROL 3 ML AMPUL.NEB NEB PRN; -PREGABALIN 75 MG CAPSULE PO SCH; -SCOPOLAMINE 1 PATCH PATCH TOPICAL PRN; +ceFAZolin 2 GM in DEXTROSE 5% IN WATER 50 ML IV SCH; -ceFAZolin 3 GM in DEXTROSE 5% IN WATER 50 ML IV SCH
[2021-03-20] MEDS ORDERED: BACITRACIN 50,000 UNIT VIAL IR ONE (09:06)
[2021-03-20] MEDS ORDERED: PROPOFOL 200 MG/20 ML VIAL IV ONE (09:16)
[2021-03-20] MEDS ORDERED: MIDAZOLAM 2 MG/2 ML VIAL ONE (09:16)
[2021-03-20] MEDS ORDERED: ONDANSETRON 4 MG/2 ML VIAL ONE (09:16)
[2021-03-20] MEDS ORDERED: fentaNYL 100 MCG/2 ML VIAL IV ONE (09:16)
[2021-03-20] MEDS ORDERED: KETAMINE 50 MG/ML ML ONE (09:16)
[2021-03-20] MEDS ORDERED: GLYCOPYRROLATE 0.2 MG/ML VIAL IV ONE (09:16)
[2021-03-20] MEDS ORDERED: DEXAMETHASONE 10 MG/ML VIAL ONE (09:16)
[2021-03-20] MEDS ORDERED: LIDOCAINE HCL/PF 100 MG/5 ML SYRINGE IV ONE (09:16)
[2021-03-20] MEDS ORDERED: diphenhydrAMINE 50 MG/ML VIAL IV PRN (11:37)
[2021-03-20] MEDS ORDERED: PROMETHAZINE 25 MG/ML VIAL IM PRN (11:37)
[2021-03-20] MEDS ORDERED: BENZOCAINE/MENTHOL 1 LOZENGE PO PRN (11:37)
[2021-03-20] MEDS ORDERED: MEPERIDINE 25 MG/ML VIAL IV PRN (11:37)
[2021-03-20] MEDS ORDERED: ONDANSETRON 4 MG/2 ML VIAL IV PRN ×2 (11:37→12:06)
[2021-03-20] MEDS ORDERED: fentaNYL 100 MCG/2 ML VIAL IV PRN (11:37)
[2021-03-20] MEDS ORDERED: MEPERIDINE 50 MG/ML VIAL IM PRN (11:37)
[2021-03-20] MEDS ORDERED: IPRATROPIUM/ALBUTEROL 3 ML AMPUL.NEB NEB PRN (11:37)
[2021-03-20] MEDS ORDERED: KETOROLAC 30 MG/ML VIAL IV PRN (11:37)
[2021-03-20] MEDS ORDERED: ACETAMINOPHEN 1,000 MG/100 ML BAG IV ONE (11:37)
--- NOTE | 2021-03-20 11:41 | Operative Note ---
Brief Operative Note Date of procedure: 03/20/21 Pre-op diagnosis: Left inguinal hernia. Post-op diagnosis: other (Left) Procedure: Left radical orchiectomy and excision of left inguinal mass. Grafts/Implants: No Anesthesia: GETA Findings: Large left inguinal mass with both solid and cystic components. Intraoperative ultrasound revealed there to be cystic and solid components as well as blood flow. Cord and testicle but the entire area was extremely indurated. Complications: none Surgeon: Mario Becker Refrigeration Insulator: Rosemarie Caballero Specimens Removed/Pathology: other (Left testicle and spermatic cord, left inguinal mass.) Condition: stable Disposition: other (Per Dr. Caballero's report.) Operative Note Operative Note: The patient is a 61-year-old male who presented with complaints consistent with a left inguinal hernia. Dr. Caballero brought the patient to the operating room for a left inguinal hernia repair. Upon creating his incision and opening there was a large left inguinal mass that appeared to have solid and cystic components adjacent to the spermatic cord. Left testicle was palpable and no testicular mass was found. Intraoperative urology consultation was obtained. On arrival I palpated the mass that appeared to be fungating and have cystic and solid components. I called an intraoperative ultrasound which was performed. This confirmed both cystic and solid components with blood flow within the mass. The testicle appeared to be solid and no mass was clearly identified upon ultrasound. It should be noted that the patient has a history of prostate cancer status post radiation. There are multiple enlarged lymph nodes that appear to be palpable. We discussed excision of the mass and performing a left radical orchiectomy. Although the patient was not specifically consented for that the consent did include anything that we encountered that needed to be done during surgery. We both discussed and made the decision that the best course of action would be to excise the mass and performed a left radical orchiectomy. The left carotid cord was identified and cremasteric fibers were dissected free. We took this as proximal as possible to the internal ring. The cord was then clamped. We then dissected the cord down distally to the testicle and carefully dissected the gubernaculum and dissected the testicle from the scrotal skin taking care not to injure the scrotal skin. Once this was free we placed the superiorly and began resecting the mass. The mass was dissected using both blunt and sharp dissection and electrocautery. Any bleeders were tied using both 2-0 and 0 Vicryl sutures. Once the mass was out and passed off the table the cord was clamped with two clamps proximally and one clip distally. I then divided the cord between the distal and proximal clamps. The cord was then tied using two separate 0 Vicryl stick ties followed by an 0 Vicryl tie. I then placed a marking stitch using a #1 PDS suture left long for further identification should the patient need further treatment and/or surgery. The cord was then placed into the abdomen through the internal ring. There was no significant bleeding identified at this time. I then turned the case back over to Dr. Caballero for completion of his portion of the procedure. Please see Dr. Caballero's report for blood loss and postoperative condition.
[2021-03-20] MEDS ORDERED: LACTATED RINGERS 1,000 ML IV SCH (11:45)
--- NOTE | 2021-03-20 11:51 | Ultrasound Report ---
CLINICAL INFORMATION: Left inguinal mass discovered during left inguinal hernia repair COMPARISON: None. FINDINGS: Both testes are normal and symmetric in size position and echotexture each approximately 6 x 3 cm. There is no intratesticular masses. Arterial blood flow is normal in both testicles color Doppler. In the left inguinal region, a 6 x 6 cm solid isoechoic well-circumscribed mass which demonstrates arterial blood flow on color Doppler. IMPRESSION: 6 cm mass in the left inguinal region. This could represent a pathologic lymph node from metastases or lymphoma or even a primary tumor such as a sarcoma. The exam was performed intraoperatively-it is presumed the mass was resected will be sent for pathologic diagnosis. Both testes are normal Interpreted and Authenticated by: Juan Miguel Portillo 03/20/21
--- NOTE | 2021-03-20 12:02 | XRay Report ---
CLINICAL INFORMATION: surgical count COMPARISON: None. FINDINGS: No surgical sponge is identified. No osseous abnormality. Disc prostheses at L5-S1. Scrotal swelling noted IMPRESSION: No surgical sponge are identified. Moderate scrotal swelling.. Interpreted and Authenticated by: Juan Miguel Portillo 03/20/21
--- NOTE | 2021-03-20 12:06 | Brief Operative Note ---
Brief Operative Note Date of procedure: 03/20/21 Pre-op diagnosis: LEFT INGUINAL HERNIA Post-op diagnosis: other (LEFT INGUINAL MASS WITH ADENOPATHY) Procedure: LEFT INGUINAL EXPLORATION;INTRAOPERATIVE ULTRASOUND;EXCISION OF LEFT INGUINAL MASS AND LEFT RADICAL ORCHIECTOMY Grafts/Implants: No Anesthesia: GLMA Findings: LARGE INDURATED HARD MASS OF GROIN WITH MULTIPLE LARGE LYMPH NODES AND INDURATION OF CORD WITHOUT DIRECT INVOLVEMENT Complications: none Surgeon: Rosemarie Caballero Estimated blood loss (cc): 30 Specimens Removed/Pathology: other (LEFT TESTICLE AND SPERMATIC CORD;HARD LOBULATED MASS OF LEFT INGUINAL AREA) Condition: stable Disposition: PACU
[2021-03-20] MEDS ORDERED: ALBUTEROL SULFATE 200 PUFF INHALER INH PRN (12:16)
[2021-03-20 12:54] LABS: Prostate Specific Antigen 3.04 ng/mL (<6.50)
[2021-03-20] MEDS ORDERED: MELATONIN 3 MG TABLET PO PRN (13:20)
[2021-03-20] MEDS: HYDROmorphone 1 MG/ML SYRINGE IV PRN ×2 (16:30→20:27)
[2021-03-20] MEDS: LEVOFLOXACIN 500 MG/100 ML BAG IV SCH (16:30)
[2021-03-20] MEDS: 0.9 % SODIUM CHLORIDE 1,000 ML IV SCH (16:30)
[2021-03-20] MEDS: 0.9 % SODIUM CHLORIDE 10 ML SYRINGE IV SCH ×2 (16:31→20:29)
[2021-03-20] MEDS: SENNOSIDES 1 TABLET PO SCH (20:28)
[2021-03-20] MEDS: DOCUSATE SODIUM 100 MG CAPSULE PO SCH (20:28)
[2021-03-21] MEDS: HYDROcodone/APAP 10/325MG TABLET PO PRN ×5 (01:58→17:49)
[2021-03-21] MEDS: 0.9 % SODIUM CHLORIDE 1,000 ML IV SCH ×2 (02:18→12:58)
[2021-03-21] MEDS: HYDROmorphone 1 MG/ML SYRINGE IV PRN ×2 (03:21→21:26)
[2021-03-21] MEDS: 0.9 % SODIUM CHLORIDE 10 ML SYRINGE IV SCH ×3 (05:37→21:27)
[2021-03-21 07:05] LABS: Basophils # (Auto) 0.01 K/mcL (0.00-0.20); Basophils % (Auto) 0.1 % (0.0-2.0); Eosinophils # (Auto) 0.02 K/mcL (0.00-0.70); Eosinophils % (Auto) 0.3 % (0.0-7.0); Hematocrit 33.2 % (41.0-55.0); Hemoglobin 10.6 g/dL (13.5-16.5); Lymphocytes # (Auto) 1.11 K/mcL (1.50-4.80); Lymphocytes % (Auto) 15.1 % (15.0-49.0); Mean Corpuscular HGB Conc 31.9 g/dL (31.0-36.0); Mean Platelet Volume 9.2 fL (7.4-10.4); Monocytes # (Auto) 1.41 K/mcL (0.10-0.90); Monocytes % (Auto) 19.2 % (1.0-12.0); Neutrophils % (Auto) 65.3 % (38.0-78.0); Platelet Count 249 K/mcL (140-440); RBC 3.86 M/mcL (4.50-5.90); Red Cell Distribution Width 13.1 % (11.5-14.5); WBC 7.4 K/mcL (4.5-11.0)
[2021-03-21] MEDS: Fluticasone Furoate-Vilanterol [Breo Ellipta] Inhaler INH SCH (08:56)
[2021-03-21] MEDS: DOCUSATE SODIUM 100 MG CAPSULE PO SCH ×2 (08:56→21:29)
[2021-03-21] MEDS: LEVOFLOXACIN 500 MG/100 ML BAG IV SCH (08:56)
[2021-03-21] MEDS: DULoxetine 30 MG CAPSULE PO SCH (08:56)
--- NOTE | 2021-03-21 13:11 | General Surgery Progress Note ---
SUBJECTIVE Subjective Patient information: Note initiated : 03/21/21 at 1:03 pm Service Date, if different from initiated Date: [] Patient: Carlos Hicks 61 y/o M admitted on 03/20/21 for Left Inguinal Hernia Repair. Chief Complaint: [] Principal diagnosis: Left inguinal and scrotal mass Interval history: Patient is status post radical left orchiectomy with excision of a large nodular mass of the upper scrotum and inguinal area. Intraoperative ultrasound revealed it to be primarily solid with vascular supply. Patient has had the anticipated swelling which is not too severe. He is advised that he will have gradual reduction in the size of the scrotal tissue over time initial tumor markers. I again discussed with him the operative findings and the reason why orchiectomy and wide excision of the mass was done. The initial tumor markers are negative. The patient is having some difficulty voiding though he has been able to void up to 400 cc at a time. He had some problems voiding prior to the surgery due to BPH and history of prostate cancer status post radiation. Constitutional Vitals: Vital Signs Temp Pulse Resp BP Pulse Ox 97.6 F 90 16 108/62 94 03/21/21 12:00 03/21/21 12:00 03/21/21 12:00 03/21/21 12:00 03/21/21 12:00 Period Temp Pulse Resp BP Sys/Dover Pulse Ox Last 24 Hr 97.6 F-99 F 56-104 16-16 102-150/62-95 93-98 Intake and Output 03/20/21 03/21/21 03/21/21 21:59 05:59 13:59 Intake Total 200 1200 500 Output Total 300 700 400 Balance -100 500 100 Weight 259 lb Intake & Output: Intake & Output 03/20/21 03/21/21 03/21/21 21:59 05:59 13:59 Intake Total 200 1200 500 Output Total 300 700 400 Balance -100 500 100 Weight 259 lb Intake: IV 200 100 Sodium Chloride 0.9% 1,000 ml @ 100 75 mls/hr IV .[id number] [facility] Rx#: [id number] Oral 1200 400 Output: Urine Catheter Amount 700 Void Amount 300 400 Other: Meal Dinner Breakfast Percent of Meal Consumed 100% 100% Feeding Ability Independent Independent Urine Appearance Clear Clear Clear Urine Color Pale Pale Bright Yellow Urine Odor Normal # Voids 1 1 Respiratory Respiratory exam: Present normal respiratory exam and CTAB Cardiovascular Cardiovascular exam: Present normal rate and rhythm, RRR, +S1 and +S2 GI/Abdominal GI/Abdominal exam: Present normal bowel sounds and soft; Absent distended Additional comments: Moderately severe swelling of the left hemiscrotum with some extension to the right side. Moderate ecchymosis but tissue remains soft. Extremities Exam Extremities exam: Present full ROM and normal inspection Neurological Exam Neurological exam: Present alert, normal gait and oriented X3 Psychiatric Psychiatric exam: Present anxious A/P Assessment and plan (1) Mass of left inguinal region: Status: Acute (2) Urinary retention due to benign prostatic hyperplasia: Status: Acute (3) Chronic obstructive lung disease: Status: Acute Qualifiers: COPD type: emphysema Emphysema type: panlobular Qualified Code(s): J43.1 - Panlobular emphysema Narrative A/P Narrative: Patient will be allowed to try to avoid once more before straight cath. If he is unable to void will do straight cath and allow him more time. He is advised that his discharge may be delayed because of the severity of his urinary retention. He may have to have a temperature catheter until the swelling resolves Time Spent With Patient Time: Total time spent is greater than 50% in coordination of care (as documented) at patient's floor/unit and/or counseling patient:
--- NOTE | 2021-03-21 15:16 | Operative Note ---
DATE OF OPERATION: 03/20/2021 PREOPERATIVE DIAGNOSIS: Left inguinal hernia. POSTOPERATIVE DIAGNOSIS: Left inguinal mass with adenopathy and major edema. PROCEDURE: Left inguinal exploration, intraoperative ultrasound, excision of left inguinal mass, and left radical orchiectomy. SURGEON: Rosemarie Caballero M.D. INTRAOPERATIVE ORAL AND MAXILLOFACIAL PATHOLOGIST: Dr. Becker. FINDINGS: Large indurated hard mass of the colon with multiple enlarged lymph nodes and induration of the cord without direct involvement of the testicle. DESCRIPTION OF PROCEDURE: Under general anesthesia, the patient's abdomen and genitalia were prepped and draped in a sterile field. There was a large bulge of the left inguinal area. Time-out procedure was carried out. A curvilinear incision was made and in the subcutaneous fascia there was significant induration and edema. The subcutaneous fascia was divided down to the aponeurosis and the aponeurosis was opened. The cord was mobilized from the floor and the cord appeared to be normal. There was a large hard mass lateral to the cord as it extended down to the testicle. There, however, were two other nodules, one high in the scrotum and another slightly lower. Extensive dissection was carried out until the more proximal mass was isolated. This appeared to be a neoplastic process, so the urologist was asked to scrub in. He scrubbed in and evaluated the area. An intraoperative ultrasound was done, which showed three separate structures, all of which had blood supply and were solid. The testicle was still dependent in the scrotum and the blood supply and the architecture appeared to be normal. It was elected to excise the area of the large indurated proximal hard mass, but in trying to dissect it out, there was an apparent direct extension around the cord, but not directly involving the cord or the testicle. The testicle was pulled up into the operative field and was from the gubernaculum. The spermatic cord could then be from the inflamed hard indurated mass. Using blunt dissection, the mass was from the surrounding tissue and vessels and vascular tissue was clamped and controlled with ties of 2-0 Vicryl. This was continued until the mass was excised. More inferiorly, there was another mass that was also small and indurated. This too was excised. Once these were excised the spermatic cord was clamped at the internal ring and excised. The pedicle was controlled with ties of 0 Vicryl and a suture ligature of #1 PDS. Irrigation was carried out. There was no evidence of bleeding. The aponeurosis was closed over the inguinal floor using 2-0 Monocryl. The scrotum was explored and irrigated. There was no evidence of bleeding. The subcutaneous tissue was closed in 3 layers because of the significant edema. This was carried out with 2-0 Monocryl. The skin was closed with elsa. The patient tolerated the procedure well. He was awakened, transferred to a bed, and taken to the postanesthetic care unit in satisfactory condition. LCS:stoney Job ID: [id number] Doc ID: [id number] Rosemarie Caballero M.D.
[2021-03-21] MEDS: SENNOSIDES 1 TABLET PO SCH (21:28)
[2021-03-22] MEDS: HYDROcodone/APAP 10/325MG TABLET PO PRN ×2 (04:01→09:04)
[2021-03-22] MEDS: 0.9 % SODIUM CHLORIDE 10 ML SYRINGE IV SCH (05:58)
[2021-03-22] MEDS: DOCUSATE SODIUM 100 MG CAPSULE PO SCH (08:25)
[2021-03-22] MEDS: DULoxetine 30 MG CAPSULE PO SCH (08:25)
[2021-03-22] MEDS: Fluticasone Furoate-Vilanterol [Breo Ellipta] Inhaler INH SCH (08:25)
--- NOTE | 2021-03-22 09:04 | Discharge Summary ---
Discharge Provider Provider Patient information: Note initiated : 03/22/21 at 8:55 am Service Date, if different from initiated Date: [] Patient: Carlos Hicks 61 y/o M admitted on 03/20/21 for Left Inguinal Hernia Repair. Chief Complaint: [] Date of admission: 03/20/21 06:24 Discharge date: 03/22/21 Primary care physician: Juan Miguel Saavedra DO Admitting clinician: Rosemarie Caballero Attending physician on admission: Rosemarie Caballero Attending physician on discharge: Rosemarie Caballero Discharging clinician: Rosemarie Caballero COURSE Hospital Course Hospital course: 61-year-old male who was scheduled for left inguinal hernia repair on 20 March 2021. Exploration of the inguinal area revealed 3 nodular masses to which were extremely hard. Intraoperative ultrasound was done and the masses proximally were solid with vascularity. The distal mass was a normal testicle with normal architecture. The patient was explored with the assistance of the urologist and it was apparent that the cord was intimately associated with the larger mass. We question whether or not to try to salvage the testicle but in order to remove the mass the testicle will have to be sacrificed. Labs including beta hCG LDH, PSA, alpha-fetoprotein have returned is normal. Patient had difficulty with voiding in the postoperative. And after multiple voiding trials a Fox catheter was inserted. He was monitored x2 nights. He now has a temporary catheter. He will be discharged home and followed up in the office on Thursday of next week. He is otherwise doing well. Discharge diagnosis: Left groin and scrotal mass Secondary discharge diagnosis: BPH with urinary retention chronic obstructive lung disease essential hypertension history of prostate cancer Reason for admission: Postoperative left groin exploration with radical orchiectomy Procedures: Left groin exploration with radical orchiectomy and excision of solid tumor of the spermatic cord Pertinent studies/significant findings: Intraoperative ultrasound of left scrotal mass Complications: None Time Spent with Patient Time attestation: Total time spent providing and/or coordinating discharge services: Physical Examination Vital Signs Vital signs: Temp Pulse Resp BP Pulse Ox 98.0 F 73 18 118/75 97 03/22/21 07:01 03/22/21 07:01 03/22/21 07:01 03/22/21 07:01 03/22/21 07:01 General physical appearance General physical exam: no distress, moderate pain and obese Respiratory Respiratory exam: normal expansion, normal respiratory effort and clear to auscultation Abdomen Abdomen: Present soft, tender (Moderate tenderness of the left groin incision) and bowel sounds Genitourinary Genitourinary (Male): Present other (Swelling and ecchymosis of hemiscrotum; indwelling urinary catheter) Neurologic Neurologic: Present normal coordination, normal sensation and disoriented Psychiatric Psychiatric: Present oriented to time, oriented to person, oriented to place, speech is normal and memory intact Discharge Plan Patient/Caregiver Discharge Instructions Activity: increase activity as tolerated Diet: Regular Diet Prescriptions: New hydrocodone-acetaminophen 10-325 mg Tablet 1 tab PO Q4H PRN (Reason: Pain) Qty: 40 RF: 0 Continued Breo Ellipta 200-25 mcg/dose blister with device 1 inh inhalation Q24H Qty: 60 RF: 6 melatonin 5 mg tablet 10 mg PO HS PRN (Reason: Sleep) RF: 0 ProAir HFA 90 mcg/actuation HFA aerosol inhaler 2 puff INHALATION Q6HP PRN (Reason: asthma) RF: 0 duloxetine 30 mg capsule,delayed release(DR/EC) 30 mg PO QDAY RF: 0 turmeric root extract 500 mg capsule 500 mg PO BID RF: 0 saw palmetto 160 MG capsule 160 mg PO DAILY RF: 0 Follow Up Plan Follow up with: Rosemarie Caballero MD [Physician] - 04/08/21 8:15 am Patient Disposition: Home, Self-Care Prognosis: Good Rehab Potential: Good I certify that the patient requires SNF services: No Overall status at discharge: patient is progressing back to baseline Discharge Orders: Discharge Order (Routine); Ordered 03/22/21 Ordered By: Rosemarie Caballero Pending Pending Pending: Resuscitation Status Full Code Diet Regular Diet Start ThuMar 20 1211 Hydrocodone Bitart/Acetaminophen (Hydrocodone/Apap 10/325mg Tablet) 1 tab PO Q4HP PRN; Protocol PRN Reason: Per Pain Protocol Last Admin: 03/22/21 04:01 Dose: 1 tab Documented by: Admin: 03/21/21 17:49 Dose: 1 tab Documented by: Admin: 03/21/21 13:37 Dose: 1 tab Documented by: Admin: 03/21/21 09:54 Dose: 1 tab Documented by: Admin: 03/21/21 05:37 Dose: 1 tab Documented by: Admin: 03/21/21 01:58 Dose: 1 tab Documented by: JUSTYN Docusate Sodium (Docusate Sodium 100 Mg Capsule) 100 mg PO BID [facility] Last Admin: 03/22/21 08:25 Dose: 100 mg Documented by: Admin: 03/21/21 21:29 Dose: 100 mg Documented by: Admin: 03/21/21 08:56 Dose: 100 mg Documented by: Admin: 03/20/21 20:28 Dose: 100 mg Documented by: JUSTYN Duloxetine HCl (Duloxetine 30 Mg Capsule) 30 mg PO QDAY [facility] Last Admin: 03/22/21 08:25 Dose: 30 mg Documented by: Admin: 03/21/21 08:56 Dose: 30 mg Documented by: CAROL Hydromorphone HCl (Hydromorphone 1 Mg/Ml Syringe) 1 mg IV Q2HP PRN; Protocol PRN Reason: Per Pain Protocol Last Admin: 03/21/21 21:26 Dose: 1 mg Documented by: Admin: 03/21/21 03:21 Dose: 1 mg Documented by: Admin: 03/20/21 20:27 Dose: 1 mg Documented by: Admin: 03/20/21 16:30 Dose: 1 mg Documented by: CHARAN Levofloxacin (Levaquin) 500 mg in 100 mls @ 100 mls/hr IV Q24H [facility]; Protocol Last Infusion: 03/21/21 09:56 Dose: 0 mls/hr Documented by: Admin: 03/21/21 08:56 Dose: 100 mls/hr Documented by: Infusion: 03/20/21 17:30 Dose: 0 mls/hr Documented by: Admin: 03/20/21 16:30 Dose: 100 mls/hr Documented by: CHARAN Fluticasone Furoate- Vilanterol [Breo Ellipta] Inhaler 1 dose INH DAILY [facility] Last Admin: 03/22/21 08:25 Dose: Not Given Documented by: Admin: 03/21/21 08:56 Dose: Not Given Documented by: CAROL Senna (Sennosides 1 Tablet) 2 tab PO HS [facility] Last Admin: 03/21/21 21:28 Dose: 2 tab Documented by: Admin: 03/20/21 20:28 Dose: 2 tab Documented by: JUSTYN Sodium Chloride (0.9 % Sodium Chloride 10 Ml Syringe) 10 ml IV Q8 [facility] Last Admin: 03/22/21 05:58 Dose: 10 ml Documented by: Admin: 03/21/21 21:27 Dose: 10 ml Documented by: Admin: 03/21/21 12:25 Dose: 10 ml Documented by: Admin: 03/21/21 05:37 Dose: 10 ml Documented by: Admin: 03/20/21 20:29 Dose: 10 ml Documented by: Admin: 03/20/21 16:31 Dose: Not Given Documented by: CHARAN Shift Summary 03/22/21 03:09 Shift Summary by Augie Gaytan Addendum entered by Augie Gaytan RNorman 03/22/21 04:44: [place] 10/325mg administered for 02/14 pain @0400 Original Note: Pt A/Ox4, has hx of BPH and prostate cancer. He is currently recovering from a left hernia repair which included removal of nodular mass on lymph node and removal of left testicle which was performed Thursday AM. Incisional site contains elsa, gauze, and is covered in tegaderm. His groin is inflamed, but is expected to improve over time. Coude catheter inserted this shift and is draining well. Pt received 1mg Dilaudid post Fox insertion @2124 and has not requested anything else for pain this shift. All VSS ORA. IV L hand SL. He is up ad jeremias in room. Will update at bedside Initialized on 03/22/21 03:09 - END OF NOTE
[2021-03-22] MEDS: LEVOFLOXACIN 500 MG/100 ML BAG IV SCH (09:05)
--- NOTE | 2021-04-05 17:35 | Surgical Pathology Report ---
Histology Microscopic Diagnosis Specimen A- TESTIS, SPERMATIC CORD, LEFT, ORCHIECTOMY: --- BENIGN TESTICULAR PARENCHYMA WITH NO SIGNIFICANT HISTOLOGIC ALTERATION. Comments This case was referred to [facility] for soft tissue pathology consultation and was signed out by Aleks Esquivel MD. Immunohistochemical stains performed at [facility] show the neoplasm expresses estrogen receptor, and is negative for progesterone receptor, myogenin and STAT6. Additionally, MDM2 gene amplification by FISH is negative. 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 See attached report for additional details. Microscopic Description: Sections of the inguinal mass demonstrate a well circumscribed proliferation of bland spindle cell with numerous interspersed vessels. The lesion has variable cellularity with a delicate chromatin pattern. Rare vessels have hyalinization of the wall and occasional fibrin thrombi are noted. Significant mitotic activity is not appreciated. No atypical features or malignant cells are seen. Immunohistochemical stains are performed on block B2, including CD34, S100, SOX10, CD117, ALK, Pancytokeratin plus, HHF-35, Desmin and SM-MHC (adequate technical controls). The CD34 is uniformly positive within spindle cells. All the remaining stains are negative. (ACP:adj) Procedural Impression Left groin neoplasm. Gross Description The specimen is received in formalin labeled left testicle and cord and consists of an orchiectomy specimen that weighs 56 grams. The overall specimen measures 17.0 x 5.0 x 7.4 cm. The segment of cord measures 12.5 cm in length with a diameter of 2.5 cm. The testicle is covered by tunica vaginalis and measures 3.0 x 3.0 x 2.5 cm. The external surface of the entire specimen is inked black. The proximal cord margin is inked blue. The specimen is bivalved revealing a spongy yellow testicular cut surface. The tunica albuginea is intact. The epididymis is somewhat firm. No mass lesions are identified. The testis measures 2.5 x 2.7 x 2.7 cm. There are some firm areas of the efferent ducts and epididymis. Sections are submitted accordingly following slide mares: A1 - proximal spermatic cord; A2-A6 - sections of testicle including testis, epididymis and rete testis; A7 - technical sales representative cross section of spermatic cord. IHC Disclaimer Some of the tests reported may not have been cleared or approved by the U.S. Food Drug Administration (FDA). However, the FDA has determined that such clearance or approval is not necessary. Pursuant to the requirements of CLIA, this laboratory has established and verified the accuracy and precision of all tests, and additional information about these tests is available upon request. All technical controls are adequate. Electronically Signed Attachment Electronically Signed 04/05/2021 17:31
== END 2021-03-22 11:37 | disposition home or self-care (01) ==
LOC: MEDSUR → SUR 06:24 → EDSTATUS 09:00 → MEDSUR 13:05
PROVIDERS: ADMIT Family Medicine Adult Medicine; ATTEND Family Medicine Adult Medicine